=== PATIENT | female | born 1960 | race Caucasian/White ===

== ENCOUNTER 2016-09-10 18:49 | Emergency (ER) | payer OTHER ==
[~2016-09-10] VITALS: Ht 162.6 cm; Wt 98.0 kg
[2016-09-10 18:51] VITALS: Ht 162.6 cm; Wt 98.0 kg
[2016-09-10] MEDS ORDERED: IBUP-1542 PO (19:10)
[2016-09-10] MEDS ORDERED: IBUPROFEN 800 MG TAB PO ONE (19:30)
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
== END 2016-09-10 19:24 | disposition home or self-care (01) ==
LOC: FTE 18:49
DX: S19.9XXA Unspecified injury of neck, initial encounter (principal); V89.2XXA Person injured in unspecified motor-vehicle accident, traffic, initial encounter
CPT/HCPCS: Z7502; Z7610; 99283